=== PATIENT | female | born 1960 | race Caucasian/White ===

== ENCOUNTER 2020-09-01 09:20 | Day surgery (SDC) | payer OTHER ==
[~2020-09-01] VITALS: Ht 185.4 cm; Wt 86.2 kg
--- NOTE | 2020-09-01 09:45 | NUR ---
History, Chart, Medications and Allergies reviewed before start of procedure.Pre-Op teaching done. Pt verbalizes understanding. Patient confirms NPO status and agrees with scheduled surgery.
--- NOTE | 2020-09-01 12:10 | NUR ---
Discharge instructions reviewed with patient. Patient verbalizes understanding. Copy given to patient to take home. IV REMOVED. PT SALLY PO FLUIDS WELL.
--- NOTE | 2020-09-01 14:34 | NUR ---
09/01/20 1434 Savanah Cool VERIFICATIONS: EDIT CHART.
== END 2020-09-01 12:15 | disposition home or self-care (01) ==
LOC: ORSCMMR 09:20 → ORD 11:00 → ORSCMMR 11:00
PROVIDERS: Surgery
PROC: B5131ZA Fluoroscopy of Right Jugular Veins using Low Osmolar Contrast, Guidance (ICD-10-PCS; principal; 2020-09-01 11:00)
PROC: 05HM33Z Insertion of Infusion Device into Right Internal Jugular Vein, Percutaneous Approach (ICD-10-PCS; principal; 2020-09-01 11:00)
DX: C50.812 Malignant neoplasm of overlapping sites of left female breast (principal); F17.210 Nicotine dependence, cigarettes, uncomplicated
CPT/HCPCS: 77001; C1788; J0690; J1100; J1642; J2250; J2370; J2405; J2704; J3010; J7120